=== PATIENT | female | born 1950 | race Caucasian/White ===

== ENCOUNTER → 2024-05-20 10:43 | Outpatient (REF) | payer MEDICARE, OTHER, SELFPAY ==
[2024-05-20 12:38] LABS: ALT (SGPT) 22 U/L (0-35); AST (SGOT) 28 U/L (14-36); Albumin 4.6 g/dl (3.5-5.0); Alkaline Phosphatase 78 U/L (38-126); Blood Urea Nitrogen 9 mg/dl (7-17); Calcium 9.4 mg/dl (8.4-10.2); Carbon Dioxide 29 mmol/L (22-30); Chloride 103 mmol/L (98-107); Glucose 90 mg/dl (70-99); HDL Cholesterol 74 mg/dl; LDL Cholesterol, Calculated 129 mg/dl; Potassium 4.3 mmol/L (3.5-5.1); Sodium 144 mmol/L (135-145); Total Bilirubin 0.7 mg/dl (0.2-1.3); Total Cholesterol 237 mg/dl (50-199); Total Protein 7.4 g/dl (6.3-8.2); Triglyceride 170 mg/dl (10-149); Very Low Density Lipoprotein 34 mg/dl (0-30); eGFR > 60.00
[2024-05-20 12:49] LABS: TSH 0.09 uIU/ml (0.47-4.68)
== END ==
LOC: REG 10:43
PROVIDERS: ATTENDING PHYSICIAN Family Medicine
DX: E78.2 Mixed hyperlipidemia (principal); F32.0 Major depressive disorder, single episode, mild
CPT/HCPCS: 36415; 80053; 80061; 84443

== ENCOUNTER → 2024-06-02 16:57 | Outpatient (REF) | payer MEDICARE, OTHER, SELFPAY | LOC: RAD 16:57 | PROVIDERS: ATTENDING PHYSICIAN Family Medicine | DX: E78.2 Mixed hyperlipidemia (principal) | CPT/HCPCS: 75571 ==

== ENCOUNTER → 2024-06-12 08:43 | Outpatient (REF) | payer MEDICARE, OTHER, SELFPAY ==
[2024-06-12 09:58] LABS: Free T3 4.04 pg/ml (2.77-5.27)
[2024-06-13 18:11] LABS: Thyroglobulin Antibodies <0.9 IU/mL (0.0-4.0); Thyroid Peroxidase Ab (TPO) 0.5 IU/mL (0.0-9.0)
== END ==
LOC: REG 08:43
PROVIDERS: ATTENDING PHYSICIAN Family Medicine
DX: R79.89 Other specified abnormal findings of blood chemistry (principal); E78.2 Mixed hyperlipidemia
CPT/HCPCS: 36415; 84439; 84443; 84481; 86376; 86800

== ENCOUNTER → 2024-07-05 09:04 | Outpatient (REF) | payer MEDICARE, OTHER, SELFPAY | LOC: RAD 09:04 | PROVIDERS: ATTENDING PHYSICIAN Family Medicine; REFERRING PHYSICIAN Internal Medicine Hematology & Oncology | DX: Z78.0 Asymptomatic menopausal state (principal) | CPT/HCPCS: 77080 ==

== ENCOUNTER → 2024-10-11 16:22 | Outpatient (REF) | payer MEDICARE, OTHER, SELFPAY | LOC: RAD 16:22 | PROVIDERS: ATTENDING PHYSICIAN Nurse Practitioner Adult Health; FAMILY PHYSICIAN Family Medicine | DX: M25.562 Pain in left knee (principal) | CPT/HCPCS: 73564 ==

== ENCOUNTER → 2025-01-04 15:41 | Outpatient (REF) | payer MEDICARE, OTHER, SELFPAY ==
[2025-01-04 16:44] LABS: % Basophils 0.8 % (0-2); % Eosinophils 2.6 % (0-6); % Immature Granulocytes 0.3 % (0-0.5); % Lymphocytes 20.9 % (20.5-51.1); % Monocytes 10.3 % (1.7-9.3); % Neutrophils 65.1 % (42.2-75.2); Absolute Basophils 0.1 10^3/uL (0-0.2); Absolute Eosinophils 0.2 10^3/uL (0-0.7); Absolute Lymphocytes 1.9 10^3/uL (1.2-3.4); Absolute Monocytes 0.9 10^3/uL (0.1-0.6); Hematocrit 39.9 % (37.0-47.0); Hemoglobin 13.6 g/dL (12.0-16.0); Mean Corp Hgb Conc. 34.1 g/dL (33.0-37.0); Mean Corpuscular Hgb 29.4 pg (27.0-31.0); Mean Corpuscular Volume 86.2 fL (81.0-99.0); Mean Platelet Volume 10.1 fL (7.4-10.4); Nucleated Red Blood Cells % 0 %; Platelet Count 271 10^3/uL (130-400); Red Blood Cell Count 4.63 10^6/uL (4.20-5.40); Red Cell Dist. Width 13.4 % (11.5-14.5); White Blood Cell Count 9.2 10^3/uL (4.8-10.8)
[2025-01-04 17:11] LABS: Iron 107 ug/dl (37-170)
[2025-01-04 17:37] LABS: TSH Reflex To Free T4 1.16 uIU/ml (0.47-4.68)
[2025-01-04 18:12] LABS: Folate 9.4 ng/ml (2.76-20); Vitamin B12 801 pg/ml (239-931)
== END ==
LOC: REG 15:41
PROVIDERS: ATTENDING PHYSICIAN Nurse Practitioner Adult Health
DX: R53.83 Other fatigue (principal); Z79.899 Other long term (current) drug therapy; F33.0 Major depressive disorder, recurrent, mild; L03.116 Cellulitis of left lower limb; D47.9 Neoplasm of uncertain behavior of lymphoid, hematopoietic and related tissue, unspecified
CPT/HCPCS: 36415; 82607; 82746; 83540; 84443; 85025

== ENCOUNTER → 2025-04-18 13:13 | Outpatient (REF) | payer MEDICARE, OTHER, SELFPAY ==
[2025-04-18 14:20] LABS: Hematocrit 39.8 % (37.0-47.0); Hemoglobin 13.5 g/dL (12.0-16.0); Mean Corp Hgb Conc. 33.9 g/dL (33.0-37.0); Mean Corpuscular Volume 86.9 fL (81.0-99.0); Nucleated Red Blood Cells % 0 %; Platelet Count 283 10^3/uL (130-400); Red Cell Dist. Width 13.7 % (11.5-14.5)
[2025-04-18 14:51] LABS: Blood Urea Nitrogen 10 mg/dl (7-17); Calcium 9.1 mg/dl (8.4-10.2); Carbon Dioxide 27 mmol/L (22-30); Chloride 104 mmol/L (98-107); Glucose 152 mg/dl (70-99); Potassium 3.6 mmol/L (3.5-5.1); Sodium 137 mmol/L (135-145); eGFR > 60.00
== END ==
LOC: REG 13:13
PROVIDERS: ATTENDING PHYSICIAN Specialist; FAMILY PHYSICIAN Family Medicine
DX: Z01.818 Encounter for other preprocedural examination (principal)
CPT/HCPCS: 36415; 80048; 85025

== ENCOUNTER 2025-06-13 16:59 | Emergency (ER) | payer MEDICARE, OTHER, SELFPAY ==
[2025-06-13 17:01] VITALS: BP 151/84
[2025-06-13 17:05] VITALS: BP 151/84
[2025-06-13 17:08] VITALS: BMI 31.5
[2025-06-13 17:30] LABS: Hematocrit 32.3 % (37.0-47.0); Hemoglobin 10.9 g/dL (12.0-16.0); Mean Corp Hgb Conc. 33.7 g/dL (33.0-37.0); Mean Corpuscular Volume 87.1 fL (81.0-99.0); Nucleated Red Blood Cells % 0 %; Platelet Count 291 10^3/uL (130-400); Red Cell Dist. Width 14.3 % (11.5-14.5)
[2025-06-13 17:42] LABS: ALT (SGPT) 16 U/L (0-35); AST (SGOT) 23 U/L (14-36); Albumin 4.2 g/dl (3.5-5.0); Alkaline Phosphatase 98 U/L (38-126); Blood Urea Nitrogen 9 mg/dl (7-17); Calcium 8.9 mg/dl (8.4-10.2); Carbon Dioxide 25 mmol/L (22-30); Chloride 105 mmol/L (98-107); Estimated Creatinine Clearance 75 ml/min; Glucose 107 mg/dl (70-99); Potassium 3.3 mmol/L (3.5-5.1); Sodium 135 mmol/L (135-145); Total Protein 7.0 g/dl (6.3-8.2); eGFR > 60.00
[2025-06-13 18:00] VITALS: BP 158/68
--- NOTE | 2025-06-13 18:38 | ED.MUSCINJ ---
HPI-Injury
General
Chief Complaint: Fall
Source: patient
Exam Limitations: none
Time Seen by Provider: 06/13/25 17:01
Nursing documentation reviewed up to this point in time: agreed with
History of Present Illness-Injury
Is this injury a work related problem?: No
Is pt an associate of [facility]?: No
Initial Injury comments:
Patient to the emergency department with complaint of right hip pain. She had a right total hip replacement completed on 1020 following a fall and fracture to that hip. She has been following with PT and states she is now transitioning from her
walker to a cane. She states today while at home she was using her cane went to turn and heard a click followed by pain to her right hip. She had to lower herself to the ground. Has not been able to put weight on that leg since. She was brought
to the emergency department via EMS for evaluation.
Past History
Past History
ED Past Medical History: Psychiatric (Anxiety)
Review of Systems
Review of Systems
Allergies reviewed?: Yes
All Other Systems: ROS reviewed and negative except as documented in HPI and ROS
Constitutional: Reports no symptoms
EENT: Reports no symptoms
Respiratory: Reports no symptoms
Cardiac: Reports no symptoms
ABD/GI: Reports no symptoms
: Reports no symptoms
Musculoskeletal: Reports joint pain (Pain to right lateral hip.)
Skin: Reports no symptoms
Neurological: Reports no symptoms
Psychiatric: Reports no symptoms
Musculoskeletal Injury Exam
Musculoskeletal Injury Exam
Right Lateral Hip:
Pain with Movement?: Moderate
Tender to palpation?: Moderate
Soft tissue swelling?: None
External deformity and angulation?: None
Phy Exam
General Physical Exam
General Presentation: well appearing and mild distress
General age: appears stated age
General Skin: warm and dry
General Habitus: normal
General Mental: alert
General Hydration: appears well hydrated
Musculoskeletal Exam
Musculoskeletal Exam: neuro vasc intact and other (Right hip pain, no swelling or bruising noted)
Skin Exam
Skin Exam: normal color, warm/dry and no rash
Psychiatric Exam
Psychiatric Exam: normal mood/affect
Injury Course
Orders/Labs/Results
Orders:
Orders
06/13/25 17:16
EKG [Electrocardiogram (*1)] Urgent
Reason for Study: Vertigo / Dizzy
EKG- Treatment ONCE
06/13/25 17:17
CBC/With Diff [Complete Blood Count/With Diff] Urgent
CMP [Comprehensive Metabolic Panel] Urgent
Glycohemoglobin (HgbA1c) Urgent
TSH Reflex To Free T4 Urgent
Comment: ADD ON
06/13/25 17:20
Add On- LAB Urgent
Comments:: TSH, A1C
Tests Added?: TSH with reflext to T4, A1C
06/13/25 17:21
Hip, Right 2-3 Views [CR Hip - RT w/wo Pel 2-3 Vw*] Urgent
Comment: fall
Reason For Exam: fall
Include a pelvis x-ray?: Yes
06/13/25 18:41
Morphine Sulfate 4 mg IV NOW STA
Ondansetron Injectable [Zofran] 4 mg IV NOW STA
06/13/25 20:27
Oxycodone [Roxicodone] 5 mg PO NOW STA
Abnormal Lab Results
06/13/25
17:17
RBC 3.71 L 10^6/uL
(4.20-5.40)
Hgb 10.9 L g/dL
(12.0-16.0)
Hct 32.3 L %
(37.0-47.0)
Absolute Lymphs (auto) 1.1 L 10^3/uL
(1.2-3.4)
Immature Gran % 0.6 H %
(0-0.5)
Lymphocytes % 15.6 L %
(20.5-51.1)
Potassium 3.3 L mmol/L
(3.5-5.1)
Glucose 107 H mg/dl
(70-99)
06/13/25 17:17
06/13/25 17:17
*Radiology
Radiology exam reviewed: radiology read reviewed
*Pulse Oximetry
SaO2: 96
Oxygen Mode of Delivery: Room air
Patient hypoxic: no
*Critical Care Note
Total Time (30-74mins, 75-104mins- exclusive of procedures): Not Applicable
Update Note
Update Note:
Patient to the emergency department for complaint of right hip pain. She had a total right hip replacement on 05/17. She states she was doing well at home walking with a cane. States today she turned and fell up click in her hip followed by pain.
She felt like she was going to fall so she lowered herself to the floor. Was brought to the emergency department by EMS for evaluation. She was given fentanyl and route and pain was well-controlled. She was able to ambulate with a walker to the
bathroom. X-ray was reviewed, no concerning findings noted. Right lower extremity neurovascularly intact. Will be able to discharge home. She was given a prescription for oxycodone to be taken for severe pain. She will continue Tylenol as
needed. She will call orthopedics in the a.m. and schedule follow-up appointment for this week. She was given instructions on signs and symptoms to return to the emergency department and she is agreeable to this plan.
ED Attending Note
-
Portions of this chart may have been created with voice recognition software.� Occasional wrong word or��sound alike� substitutions may have occurred due to the inherent limitations of voice recognition software.
Discharge Plan
Departure
Patient Disposition: Home (Routine Discharge)
Date of Disposition: 06/13/25
Time of Disposition: 20:28
Patient with high blood pressure during this ER visit?: No
Condition: Good
Covid-19: Not Applicable
Discharge Problem:
Hip pain
Instructions: Cold therapy for pain, Musculoskeletal Pain
Prescriptions:
New
oxycodone 5 mg capsule
5 mg PO QID PRN (Reason: Pain) Qty: 10 0RF
No Action
multivitamin 1 EACH tablet
1 ea PO DAILY
cetirizine [Zyrtec] 10 MG tablet
10 mg PO DAILY
vitamin E 100 UNIT capsule
100 unit PO DAILY
alprazolam 0.25 MG tablet
0.25 mg PO DAILY PRN (Reason: anxiety)
calcium carbonate 500 MG tablet
500 mg PO DAILY
zolpidem 5 MG tablet
5 mg PO HS
zinc 10 MG tablet
20 mg PO DAILY
cholecalciferol (vitamin D3) [Vitamin D3] 1,000 UNIT capsule
1,000 unit PO DAILY
docosahexaenoic acid-epa 1 CAP capsule
1 cap PO DAILY
biotin 5,000 MCG tablet,disintegrating
5,000 mcg PO DAILY
amoxicillin-pot clavulanate 1 TABLET tablet
1 tab PO Q12 Qty: 20 0RF
Referrals:
Leydi Cheek MD [Family Provider, Family Practice]
Activity Restrictions/Additional Instructions:
Follow-up with your orthopedic provider on as scheduled.
Interventions
Interventions:
*Risk Screen - Suicide Last Done: 06/13/25 20:42
*General Assessment Last Done: 06/13/25 17:09
*Neglect/Abuse Screening Last Done: 06/13/25 17:09
*ED- Fall Risk Assessment Last Done: 06/13/25 17:09
*ED COVID-19 Vaccine History Last Done: 06/13/25 17:09
*ED Influenza Vaccine History Last Done: 06/13/25 17:09
*Nursing Disposition Last Done: 06/13/25 20:42
ED-Musculoskeletal Assessment Last Done: 06/13/25 17:09
ED- Neurological Assessment Last Done: 06/13/25 17:09
ED-Skin Assessment Last Done: 06/13/25 17:09
Discharge Date and Time
Discharge Date/Time: 06/13/25 20:43
Print Language: ICELANDIC
[2025-06-13] MEDS: ZOFRAN 4 MG IV (18:48)
[2025-06-13] MEDS: MORPHINE SULFATE 4 MG IV (18:51)
[2025-06-13 19:00] VITALS: BP 143/65
[2025-06-13 19:57] VITALS: BP 142/78
[2025-06-13] MEDS: ROXICODONE 5 MG PO (20:35)
[2025-06-14 09:33] LABS: Glycohemoglobin (HgbA1c) 5.1 % (4.0-5.9)
== END 2025-06-13 20:43 | disposition home or self-care (01) ==
LOC: EMR 16:59
PROVIDERS: Nurse Practitioner; EMERGENCY PHYSICIAN Emergency Medicine; FAMILY PHYSICIAN Family Medicine
DX: M25.551 Pain in right hip (principal); W19.XXXA Unspecified fall, initial encounter; F41.9 Anxiety disorder, unspecified; Z96.641 Presence of right artificial hip joint
CPT/HCPCS: 99284; 73502; 80053; 83036; 84443; 85025; 93005